=== PATIENT | female | born 1995 | race Caucasian/White ===

== ENCOUNTER 2017-11-23 12:26 | Emergency (ER) | payer OTHER ==
[~2017-11-23] VITALS: Ht 165.1 cm; Wt 139.3 kg
[2017-11-23 12:43] VITALS: Ht 165.1 cm; Wt 139.3 kg
[2017-11-23 14:36] VITALS: BP 107/43
== END 2017-11-23 14:36 | disposition home or self-care (01) ==
LOC: ED 12:26
DX: O21.9 Vomiting of pregnancy, unspecified (principal); Z3A.17 17 weeks gestation of pregnancy